=== PATIENT | female | born 1930 | race Caucasian/White ===

== ENCOUNTER 2018-03-13 15:26 | Emergency (ER) | payer OTHER ==
[~2018-03-13] VITALS: Ht 157.5 cm; Wt 64.4 kg
[~2018-03-13 15:26] MED LIST: LEVO125T8 PO
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
[2018-03-13] MEDS ORDERED: ACETAMINOPHEN ES 500 MG TABLET PO ONE (16:30)
--- NOTE | 2018-03-13 16:31 | NUR ---
PATIENT TRANSPORTED FOR CT AND XRAY VIA GURNEY.
[2018-03-13] MEDS ORDERED: ACETAMINOPHEN ES 500 MG TABLET ONE (16:37)
--- NOTE | 2018-03-13 17:06 | NUR ---
dr alejandro called ,
--- NOTE | 2018-03-13 19:15 | NUR ---
[facility] CALLED WITH TRANSFER INFO: [facility] RODRIGUEZ/MALINI PT TO GO TO ER [phone] GIVE REPORT DR WALLACE - NEURO PHYSICIAN DR STONE - ER PHYSICIAN ALS ETA 20:15
--- NOTE | 2018-03-13 19:48 | NUR ---
REPORT GIVEN TO MARY WADE AT [facility].
--- NOTE | 2018-03-13 19:55 | NUR ---
PT SELF AMBULATED TO BATHROOM WITH STABLE GAIT.
[2018-03-13 19:56] VITALS: BP 122/50
--- NOTE | 2018-03-13 20:27 | NUR ---
PT ENDORSED TO AMBULANCE COMPANY FOR TRANSFER. PT STABLE CONDITION. AMUBLATORY WITH STABLE GAIT. VSS. NAD.
== END 2018-03-13 20:35 | disposition short-term general hospital (02) ==
LOC: ER 15:28
DX: S12.190A Other displaced fracture of second cervical vertebra, initial encounter for closed fracture (principal); Z60.2 Problems related to living alone; Z79.899 Other long term (current) drug therapy; V49.49XA Driver injured in collision with other motor vehicles in traffic accident, initial encounter; Y93.89 Activity, other specified; Y92.413 State road as the place of occurrence of the external cause; Y99.8 Other external cause status
CPT/HCPCS: 70450; 71045; 72125; 72170; 87081; 99285; A4606; L0172; Z7610